=== PATIENT | male | born 1960 | race Two or more races ===

== ENCOUNTER 2019-04-10 02:52 | Emergency (ER) | payer OTHER ==
[~2019-04-10] VITALS: Ht 165.1 cm; Wt 75.3 kg
== END 2019-04-10 04:24 | disposition home or self-care (01) ==
LOC: MERGE 03:46 → ED 03:46
DX: S81.851A Open bite, right lower leg, initial encounter (principal); W50.3XXA Accidental bite by another person, initial encounter; Y93.89 Activity, other specified; Y92.69 Other specified industrial and construction area as the place of occurrence of the external cause; Y99.0 Civilian activity done for income or pay
CPT/HCPCS: 99283